=== PATIENT | female | born 1975 | race African-American/Black ===

== ENCOUNTER 2019-05-20 17:53 | Emergency (ER) | payer MEDICAID ==
[~2019-05-20] VITALS: Ht 167.6 cm; Wt 109.0 kg
[2019-05-20 18:18] VITALS: BP 146/97
== END 2019-05-20 21:48 | disposition left against medical advice (07) ==
LOC: ER 17:53
DX: M25.562 Pain in left knee (principal); Z53.21 Procedure and treatment not carried out due to patient leaving prior to being seen by health care provider